=== PATIENT | female | born 1945 | race Two or more races ===

== ENCOUNTER 2024-10-17 10:03 | Emergency (ER) | payer BC ==
[~2024-10-17] VITALS: Ht 167.6 cm; Wt 65.8 kg
[2024-10-17] MEDS ORDERED: ZOVIRAX400 MG PO (10:48)
[2024-10-17] MEDS ORDERED: VITAMIN C250 MG PO (10:49)
[2024-10-17] MEDS ORDERED: IRON CHEWS15 MG PO (10:49)
[2024-10-17] MEDS ORDERED: VITAMIN D-40010 MCG (10:50)
[2024-10-17 12:06] LABS: HEMATOCRIT 39.2 % (36.0-45.00); HEMOGLOBIN 13.1 g/dL (12.0-15.00); MEAN CELL VOLUME 92.9 fL (80.00-100.00); MEAN CORPUSCULAR HEMOGLOBIN 30.9 pg (27.00-32.0); MEAN CORPUSCULAR HGB CONC 33.3 g/dl (32.0-36.0); PLATELET COUNT 154 K/uL (150-450); RED BLOOD COUNT 4.23 M/uL (4.00-6.00); RED CELL DISTRIBUTION WIDTH 13.2 % (11.5-14.5)
[2024-10-17 12:25] LABS: ALBUMIN 3.8 gm/dL (3.4-5.0); BILIRUBIN TOTAL 0.29 mg/dL (0.3-1.2); CALCIUM 9.4 mg/dL (8.5-10.1); CREATININE SERUM 0.73 mg/dL (0.55-1.02); GFR 77.3; GLOBULINA 3.5 G/DL (2.4-3.5); POTASSIUM 3.63 mEq/L (3.5-5.1); TOTAL PROTEIN 7.3 gm/dL (6.4-8.2)
== END 2024-10-17 16:13 | disposition home or self-care (01) ==
LOC: ER 10:05
PROVIDERS: Emergency Medicine
DX: I83.90 Asymptomatic varicose veins of unspecified lower extremity (principal); M79.651 Pain in right thigh; Z88.0 Allergy status to penicillin